=== PATIENT | male | born 1970 | race Caucasian/White ===

== ENCOUNTER 2016-07-06 18:06 | Emergency (ER) | payer OTHER ==
[2016-07-06 18:26] VITALS: BP 157/77; PULSE 93; RESP 15; TEMP 98.7
--- NOTE | 2016-07-06 18:57 | ED ---
Neck Injury/Pain HPI - General Chief Complaint: Neck Pain/Injury Stated Complaint: nodule on neck Time Seen by Provider: 07/06/16 18:35 Source: RN notes reviewed Mode of arrival: ambulatory Limitations: no limitations - History of Present Illness Initial Comments: This is a 46-year-old male with chief complaint of acute onset of right-sided neck swelling for proximally 2 days. Patient reports he woke up yesterday insert as well as the humerus. Patient reports that he had a go to work today and decided to come to the emergency department to be evaluated after work. Patient states that he has no fever or chills. He denies any sore throat or cough. Patient states that he does have a history of poor dentition. - Related Data Home Medications Medication Instructions Recorded Confirmed Lisinopril [Zestril] 2.5 mg PO DAILY 06/02/15 07/06/16 glipiZIDE [Glucotrol] 10 mg PO AC-BID 06/02/15 07/06/16 Previous Rx's Medication Instructions Recorded Amoxic-Pot Clav 875-125Mg 1 tab PO Q12HR #20 tablet 07/06/16 [Augmentin 875-125] Allergies Allergy/AdvReac Type Severity Reaction Status Date / Time No Known Allergies Allergy Verified 07/06/16 18:56 Review of Systems ROS Statement: Those systems with pertinent positive or pertinent negative responses have been documented in the HPI. ROS Other: All systems not noted in ROS Statement are negative. Past Medical History Past Medical History: Diabetes Mellitus, Hypertension History of Any Multi-Drug Resistant Organisms: None Reported Past Surgical History: Ear Surgery Past Psychological History: No Psychological Hx Reported Smoking Status: Never smoker Past Alcohol Use History: None Reported Past Drug Use History: None Reported General Exam - General Exam Comments Initial Comments: Pleasant 46-year-old male. No acute distress. Limitations: no limitations General appearance: alert, in no apparent distress Head exam: Present: atraumatic, normocephalic, normal inspection Eye exam: Present: normal appearance, PERRL, EOMI. Absent: scleral icterus, conjunctival injection, periorbital swelling ENT exam: Present: normal exam, normal oropharynx, mucous membranes moist, TM's normal bilaterally, normal external ear exam, other (Patient has significant swelling over the right lower jaw. ) Neck exam: Present: normal inspection. Absent: tenderness, meningismus, lymphadenopathy Respiratory exam: Present: normal lung sounds bilaterally. Absent: respiratory distress, wheezes, rales, rhonchi, stridor Cardiovascular Exam: Present: regular rate, normal rhythm, normal heart sounds. Absent: systolic murmur, diastolic murmur, rubs, gallop, clicks GI/Abdominal exam: Present: soft, normal bowel sounds. Absent: distended, tenderness, guarding, rebound, rigid Extremities exam: Present: normal inspection, full ROM, normal capillary refill. Absent: tenderness, pedal edema, joint swelling, calf tenderness Back exam: Present: normal inspection, full ROM Neurological exam: Present: alert, oriented X3, CN II-XII intact Psychiatric exam: Present: normal affect, normal mood Skin exam: Present: warm, dry, intact, normal color. Absent: rash Course Vital Signs 07/06/16 18:22 Temperature 98.7 F Pulse Rate 93 Respiratory 15 Rate Blood Pressure 157/77 O2 Sat by Pulse 96 Oximetry Medical Decision Making - Medical Decision Making Patient is a 46-year-old male she complains of acute right lower jaw swelling. Patient has no fever or chills, no evidence of dental caries or dental abscess. Patient reports that it occurred suddenly 2 days ago. I discussed with Dr. Zeng needed a examination with the patient. He thinks that is a possible salivary stone clogging the duct. We'll put the patient on Augmentin and advised to have somewhat limited drops to increase the saliva and possibly remove the stone from the area. We'll also refer the patient to ENT specialist if symptoms continue to persist after 2 or 3 days. Patient understands treatment plan will comply. Return parameters were discussed. Disposition Clinical Impression: Salivary gland swelling Disposition: HOME SELF-CARE Condition: Good Instructions: Sialoadenitis (ED) Additional Instructions: Patient advised to complete entire antibiotic prescription. Follow-up with primary care provider. Patient also advised to use any soap on lemon drops to increase saliva production, as this will possibly have the stone come out. Patient advised to follow-up with ENT specialist within the next 2 or 3 days if symptoms continue to persist. Prescriptions: Amoxic-Pot Clav 875-125Mg [Augmentin 875-125] 1 tab PO Q12HR #20 tablet Referrals: Tia Staton MD [Primary Care Provider] - 1-2 days Edgar Wiggins DO [Doctor of Osteopathic Medicine] - 1-2 days Time of Disposition: 18:53
== END 2016-07-06 19:01 | disposition home or self-care (01) ==
LOC: EC 18:06
DX: K11.20 Sialoadenitis, unspecified (principal); E11.9 Type 2 diabetes mellitus without complications; I10 Essential (primary) hypertension; Z79.84 Long term (current) use of oral hypoglycemic drugs; Z79.899 Other long term (current) drug therapy
CPT/HCPCS: 99283

== ENCOUNTER → 2016-07-13 | Outpatient (CLI) | payer OTHER ==
--- NOTE | 2016-07-13 14:26 | US ---
EXAMINATION TYPE: US venous doppler duplex LE LT DATE OF EXAM: 07/13/2016 1:12 PM COMPARISON: NONE CLINICAL HISTORY: I83.92 Asymptomatic Varicose Veins LLE, PVD I73.9. Pain left leg with varicose vein s SIDE PERFORMED: Left TECHNOLOGIST IMPRESSION: wnl Left Leg: Negative for DVT Grayscale, color Doppler, spectral Doppler imaging performed of the deep veins of the left lower extr emity. Left common femoral, superficial femoral, popliteal veins all compress normally and show olegario l venous waveforms and color flow on Doppler. IMPRESSION: No evident deep venous thrombosis within the deep veins of the left lower extremity is v isualized.
--- NOTE | 2016-07-20 12:51 | P.ARTDOP ---
Arterial Doppler LOWER EXTREMITY ARTERIAL DOPPLER: DATE OF SERVICE: 07/13/2016 Reason for study: Left leg pain. Doppler waveforms: Multiphasic bilaterally throughout. Pulse volume recording: Normal configuration. Pressure gradients: Non-. Ankle-brachial indices: Greater than 1 bilaterally. Toe pressures: 127 on the right, 129 on the left Impression: Normal study.
== END ==
LOC: RADUSWWP 12:50
PROVIDERS: ATTEND Family Medicine
DX: I83.92 Asymptomatic varicose veins of left lower extremity (principal)
CPT/HCPCS: 93923

== ENCOUNTER 2017-09-20 11:57 | Emergency (ER) | payer OTHER ==
[2017-09-20] MEDS ORDERED: SODIUM CHLORIDE 0.9% 1,000 ML IV STA (12:39)
[2017-09-20 13:18] LABS: Basophils % (A) 0 %; Eosinophils # (A) 0.1 k/uL (0-0.7); Eosinophils % (A) 1 %; HGB 13.4 gm/dL (13.0-17.5); Lymphocytes % (A) 14 %; MCH 29.8 pg (25.0-35.0); MCHC 33.6 g/dL (31.0-37.0); MCV 88.5 fL (80.0-100.0); Mean Platelet Volume 8.9; Monocytes # (A) 0.3 k/uL (0-1.0); Monocytes % (A) 5 %; Neutrophils # (A) 5.5 k/uL (1.3-7.7); Neutrophils % (A) 78 %; Platelet Count 177 k/uL (150-450); RBC 4.52 m/uL (4.30-5.90)
[2017-09-20 13:25] VITALS: RESP 18
[2017-09-20 13:40] LABS: ALT 35 U/L (21-72); AST 21 U/L (17-59); Albumin 3.6 g/dL (3.5-5.0); Alkaline Phosphatase 55 U/L (38-126); Anion Gap 12 mmol/L; Blood Urea Nitrogen 20 mg/dL (9-20); Calcium 7.9 mg/dL (8.4-10.2); Carbon Dioxide 24 mmol/L (22-30); Chloride 104 mmol/L (98-107); Glucose 204 mg/dL (74-99); Potassium 3.8 mmol/L (3.5-5.1); Sodium 140 mmol/L (137-145); Total Bilirubin 0.7 mg/dL (0.2-1.3); Total Protein 6.2 g/dL (6.3-8.2)
--- NOTE | 2017-09-20 13:49 | ED ---
General Adult HPI - General Chief complaint: Dizziness Stated complaint: dizziness Time Seen by Provider: 09/20/17 12:35 Source: patient, EMS, RN notes reviewed Mode of arrival: EMS Limitations: no limitations - History of Present Illness Initial comments: 47-year-old male presents emergency Department chief complaint of dizziness. Patient states that he felt the room spinning and fell using a pass out. Patient states that he showed up to work after riding the bus and felt like this. Patient coworker did give the patient something being drinking when she didn't improve his symptoms. Patient is diabetic. Patient denies any chest pain or shortness breath at this time. Patient states he feels almost 100% better since being emergency department. Patient denies any fever, chills, URI symptoms. Patient denies any other complaints this time. - Related Data Home Medications Medication Instructions Recorded Confirmed Lisinopril [Zestril] 2.5 mg PO DAILY 06/02/15 09/20/17 glipiZIDE [Glucotrol] 10 mg PO AC-BID 06/02/15 09/20/17 Allergies Allergy/AdvReac Type Severity Reaction Status Date / Time No Known Allergies Allergy Verified 09/20/17 12:22 Review of Systems ROS Statement: Those systems with pertinent positive or pertinent negative responses have been documented in the HPI. ROS Other: All systems not noted in ROS Statement are negative. Past Medical History Past Medical History: Diabetes Mellitus, Hypertension History of Any Multi-Drug Resistant Organisms: None Reported Past Surgical History: Ear Surgery Past Psychological History: No Psychological Hx Reported Smoking Status: Never smoker Past Alcohol Use History: None Reported Past Drug Use History: None Reported General Exam Limitations: no limitations General appearance: alert, in no apparent distress Head exam: Present: atraumatic, normocephalic, normal inspection Eye exam: Present: normal appearance, PERRL, EOMI. Absent: scleral icterus, conjunctival injection, periorbital swelling ENT exam: Present: normal exam, normal oropharynx, mucous membranes moist Neck exam: Present: normal inspection, full ROM. Absent: tenderness, meningismus, lymphadenopathy Respiratory exam: Present: normal lung sounds bilaterally. Absent: respiratory distress, wheezes, rales, rhonchi, stridor Cardiovascular Exam: Present: regular rate, normal rhythm, normal heart sounds. Absent: systolic murmur, diastolic murmur, rubs, gallop, clicks GI/Abdominal exam: Present: soft, normal bowel sounds. Absent: distended, tenderness, guarding, rebound, rigid Neurological exam: Present: alert, oriented X3, CN II-XII intact, reflexes normal. Absent: motor sensory deficit Course Vital Signs 09/20/17 09/20/17 12:16 13:24 Temperature 98.2 F Pulse Rate 78 76 Respiratory 16 18 Rate Blood Pressure 167/77 163/88 O2 Sat by Pulse 95 98 Oximetry EKG Findings - EKG Comments: EKG Findings:: EKG performed at 12:57 normal sinus rhythm with a rate of 75. 200 QRS 100 QT/QTC 390/442 Medical Decision Making - Medical Decision Making 47-year-old male presented to the ER for the dizziness which improved after eating. this most likely related to hypoglycemia. patient's blood sugar has been trending up. patient has no symptoms in emergency from. patient normally ekg and lab work. patient advised to recheck blood sugar he frequent meals and follow-up with pcp. - Lab Data Result diagrams: 09/20/17 12:26 09/20/17 12:26 Lab Results 09/20/17 09/20/17 09/20/17 Range/Units 12:26 12:26 12:26 WBC 7.0 (3.8-10.6) k/uL RBC 4.52 (4.30-5.90) m/uL Hgb 13.4 (13.0-17.5) gm/dL Hct 40.0 (39.0-53.0) % MCV 88.5 (80.0-100.0) fL MCH 29.8 (25.0-35.0) pg MCHC 33.6 (31.0-37.0) g/dL RDW 13.0 (11.5-15.5) % Plt Count 177 (150-450) k/uL Neutrophils % 78 % Lymphocytes % 14 % Monocytes % 5 % Eosinophils % 1 % Basophils % 0 % Neutrophils # 5.5 (1.3-7.7) k/uL Lymphocytes # 1.0 (1.0-4.8) k/uL Monocytes # 0.3 (0-1.0) k/uL Eosinophils # 0.1 (0-0.7) k/uL Basophils # 0.0 (0-0.2) k/uL Sodium 140 (137-145) mmol/L Potassium 3.8 (3.5-5.1) mmol/L Chloride 104 (98-107) mmol/L Carbon Dioxide 24 (22-30) mmol/L Anion Gap 12 mmol/L BUN 20 (9-20) mg/dL Creatinine 0.86 (0.66-1.25) mg/dL Est GFR (CKD-EPI)AfAm >90 (>60 ml/min/1.73 sqM) Est GFR (CKD-EPI)NonAf >90 (>60 ml/min/1.73 sqM) Glucose 204 H (74-99) mg/dL Calcium 7.9 L (8.4-10.2) mg/dL Total Bilirubin 0.7 (0.2-1.3) mg/dL AST 21 (17-59) U/L ALT 35 (21-72) U/L Alkaline Phosphatase 55 (38-126) U/L Troponin I <0.012 (0.000-0.034) ng/mL Total Protein 6.2 L (6.3-8.2) g/dL Albumin 3.6 (3.5-5.0) g/dL Disposition Clinical Impression: Dizziness Disposition: HOME SELF-CARE Condition: Stable Instructions: Dizziness (ED) Additional Instructions: Please return to the Emergency Department if symptoms worsen or any other concerns. Is patient prescribed a controlled substance at d/c from ED?: No Referrals: Tia Staton MD [Primary Care Provider] - 1-2 days Time of Disposition: 14:15
[2017-09-20 14:24] VITALS: BP 160/87; PULSE 77; TEMP 97.4
== END 2017-09-20 14:45 | disposition home or self-care (01) ==
LOC: EC 11:57
DX: R42 Dizziness and giddiness (principal); E11.9 Type 2 diabetes mellitus without complications; I10 Essential (primary) hypertension; Z79.84 Long term (current) use of oral hypoglycemic drugs; Z79.899 Other long term (current) drug therapy
CPT/HCPCS: 36415; 80053; 84484; 85025; 93005; 96360; 99284

== ENCOUNTER → 2017-12-18 | Outpatient (CLI) | payer OTHER ==
--- NOTE | 2017-12-18 18:38 | MR ---
EXAMINATION TYPE: MR lumbar spine wo con DATE OF EXAM: 12/18/2017 COMPARISON: None HISTORY: Low back pain CONTRAST: 0 mL intravenous Gadavist. TECHNIQUE: Multiplanar, multisequence images of the lumbar spine were acquired. FINDINGS: Cord terminates at the L1 level. L5-S1: Mild disc bulge is present with anterior thecal sac contact. No spinal canal stenosis present. Facet hypertrophy is present on the right. This has mild posterior lateral thecal sac contact. Disc desiccation is present. L4-L5: Broad-based disc bulge is present. There is central focal protrusion. Far right and left later al disc bulge is present. There is mild bilateral foraminal narrowing. No AP spinal canal stenosis pr esent. Mild facet hypertrophy is present. Disc desiccation is present. L3-L4: Based disc bulge has anterior thecal sac flattening. Facet hypertrophy is posterior lateral th ecal sac compression. No spinal canal stenosis is present. Neural foramen are patent. L2-L3: Mild disc bulging is anterior thecal sac contact. Mild facet hypertrophy is present. No spinal canal stenosis or neural foraminal stenosis is is L1-L2: No significant disc bulge or disc herniation. No spinal canal stenosis. No foraminal stenosi s. T12-L1: No significant disc bulge or disc herniation. No spinal canal stenosis. No foraminal stenos is. IMPRESSION: 1. Disc bulging L5-S1 and L4-5 with mild anterior thecal sac compression. 2. L4-5 disc has some additional central protrusion with moderate anterior thecal sac compression wit hout stenosis. 3. Diffuse mild facet hypertrophy, greater in the lower lumbar spine with mild posterior lateral thec al sac compression. No stenosis is present
== END | disposition home or self-care (01) ==
LOC: RADMRIMAIN 09:51
PROVIDERS: ATTEND Family Medicine
DX: M51.27 Other intervertebral disc displacement, lumbosacral region (principal); M51.26 Other intervertebral disc displacement, lumbar region; M47.816 Spondylosis without myelopathy or radiculopathy, lumbar region
CPT/HCPCS: 72148

== ENCOUNTER 2018-07-05 13:20 | Emergency (ER) | payer OTHER ==
[2018-07-05] MEDS ORDERED: KETOROLAC 60 MG/2 ML VIAL IM STA (13:45)
[2018-07-05] MEDS ORDERED: LIDOCAINE 5% PATCH TOPICAL STA (13:45)
--- NOTE | 2018-07-05 14:13 | ED ---
General Adult HPI - General Chief complaint: Chest Pain Stated complaint: fall, back pain Time Seen by Provider: 07/05/18 13:40 Source: patient, RN notes reviewed, old records reviewed Mode of arrival: ambulatory Limitations: no limitations - History of Present Illness Initial comments: 40-year-old male patient with past medical history of hypertension diabetes presents to ED after sustaining a fall while getting out of the bathtub today. Patient reports that he slipped, his left ribs hit the bathtub. Patient denies any other injuries. Patient denies any trauma to head or neck. Patient laboratory without difficulty. Patient primary complaint is left seventh rib pain. Patient is having no difficulty breathing. Patient denies all other complaints. Systemic: Pt denies fatigue, myalgia, fever/chills, rash. Pt denies weakness, night sweats, weight loss. Neuro: Pt denies headache, visual disturbances, syncope or pre-syncope. HEENT: Pt denies ocular discharge or irritation, otalgia, rhinorrhea, pharyngitis or notable lymphadenopathy. Cardiopulmonary: Pt denies chest pain, SOB, heart palpitations, dyspnea on exertion. Abdominal/GI: Pt denies abdominal pain, n/v/d. : Pt denies dysuria, burning w/ urination, frequency/urgency. Denies new onset urinary or bowel incontinence. MSK: Pt denies myalgia, loss of strength or function in extremities. Neuro: Pt denies new onset weakness, paresthesias. - Related Data Home Medications Medication Instructions Recorded Confirmed Lisinopril [Zestril] 2.5 mg PO DAILY 06/02/15 09/20/17 glipiZIDE [Glucotrol] 10 mg PO AC-BID 06/02/15 09/20/17 Previous Rx's Medication Instructions Recorded Ibuprofen [Motrin] 600 mg PO Q6HR PRN #40 day 07/05/18 Allergies Allergy/AdvReac Type Severity Reaction Status Date / Time No Known Allergies Allergy Verified 07/05/18 13:49 Review of Systems ROS Statement: Those systems with pertinent positive or pertinent negative responses have been documented in the HPI. ROS Other: All systems not noted in ROS Statement are negative. Past Medical History Past Medical History: Diabetes Mellitus, Hypertension History of Any Multi-Drug Resistant Organisms: None Reported Past Surgical History: Ear Surgery Past Psychological History: No Psychological Hx Reported Smoking Status: Never smoker Past Alcohol Use History: None Reported Past Drug Use History: None Reported General Exam - General Exam Comments Initial Comments: Constitutional: NAD, AOX3, Pt has pleasant affect. HEENT: NC/AT, trachea midline, neck supple, no lymphadenopathy. Posterior pharynx non erythematous, without exudates. External ears appear normal, without discharge. Mucous membranes moist. Eyes PERRLA, EOM intact. There is no scleral icterus. No pallor noted. Cardiopulmonary: RRR, no murmurs, rubs or gallops, no JVD noted. Lungs CTAB in anterior and posterior acuna. No peripheral edema. Abdominal exam: Abdomen soft and non-distended. Abdomen non-tender to palpation in all 4 quadrants. Bowel sounds active in LLQ. No hepatosplenomegaly. No ecchymosis Neuro: CN II-XII grossly intact. No nuchal rigidity. MSK: Left seventh rib mildly tender to palpation, no crepitus, no ecchymoses, no palpable deformity. No posterior calf tenderness bilaterally, homans sign negative bilaterally. Posterior tibialis and radial pulse +2 bilaterally. Sensation intact in upper and lower extremities. Full active ROM in upper and lower extremities, 5/5 stregnth. Limitations: no limitations Course Vital Signs 07/05/18 14:58 Temperature 98.3 F Pulse Rate 82 Respiratory 18 Rate Blood Pressure 133/72 O2 Sat by Pulse 99 Oximetry Medical Decision Making - Medical Decision Making 40-year-old male patient with past medical history of hypertension diabetes presents to ED after sustaining a fall while getting out of the bathtub today. Patient reports that he slipped, his left ribs hit the bathtub. Patient denies any other injuries. Patient denies any trauma to head or neck. Patient laboratory without difficulty. Patient primary complaint is left seventh rib pain. Patient is having no difficulty breathing. Patient denies all other complaints. Patient vital signs stable, afebrile. Physical exam displayed: Left seventh rib mildly tender to palpation, no crepitus, no ecchymoses, no palpable deformity. Plain film of left ribs and PA chest x-ray did not display any acute abnormality. Patient had improvement of Toradol, lidoderm patch. Patient to be discharged, follow-up with primary care provider in 1-2 days. Patient to return to ER if new symptoms develop or condition worsens in any way. Return parameters discussed, patient verbalized understanding. Case discussed with Dr. Gonzalez. Disposition Clinical Impression: Rib pain on left side Disposition: HOME SELF-CARE Condition: Stable Instructions (If sedation given, give patient instructions): Fall Prevention (ED) Additional Instructions: Patient to adhere to previously discussed treatment plan and will take medication(s) as directed. Patient to follow up with PCP in 1-2 days. Patient to return to ED if symptoms do not improve. Return to ER if condition worsens in any way. Including symptoms of difficulty breathing, worsening pain. Prescriptions: Ibuprofen [Motrin] 600 mg PO Q6HR PRN #40 day PRN Reason: Pain Is patient prescribed a controlled substance at d/c from ED?: No Referrals: Tia Staton MD [Primary Care Provider] - 1-2 days
--- NOTE | 2018-07-05 14:41 | XR ---
Chest x-ray with left RIBS HISTORY: Trauma and pain Frontal view of the chest and 4 views of the left ribs are submitted. There is no evident airspace disease or pneumothorax. Heart size is normal. No displaced rib fracture . No pleural effusion. IMPRESSION: No acute abnormality. Bone scan could be performed for increased sensitivity if occult fr acture is suspected.
[2018-07-05 14:59] VITALS: BP 133/72; PULSE 82; RESP 18; TEMP 98.3
== END 2018-07-05 15:20 | disposition home or self-care (01) ==
LOC: EC 13:20
DX: R07.81 Pleurodynia (principal); E11.9 Type 2 diabetes mellitus without complications; I10 Essential (primary) hypertension; Z79.84 Long term (current) use of oral hypoglycemic drugs; Z79.899 Other long term (current) drug therapy; W01.198A Fall on same level from slipping, tripping and stumbling with subsequent striking against other object, initial encounter; Y93.89 Activity, other specified
CPT/HCPCS: 71101; 99284; 96372; J1885

== ENCOUNTER → 2021-11-22 | Outpatient (CLI) | payer OTHER ==
[2021-11-22 14:59] LABS: Basophils # (A) 0.04 X 10*3/uL (0.00-0.10); Basophils % (A) 0.6 %; Eosinophils # (A) 0.21 X 10*3/uL (0.04-0.35); Eosinophils % (A) 3.1 %; HCT 45.8 % (39.6-50.0); HGB 14.6 g/dL (13.0-17.0); Immature Grans, Automated 0.6 %; Lymphocytes % (A) 30.8 %; MCH 28.6 pg (27.0-32.0); MCHC 31.9 g/dL (32.0-37.0); MCV 89.6 fL (80.0-97.0); Mean Platelet Volume 12.7 fL (9.5-12.2); Monocytes # (A) 0.48 X 10*3/uL (0.20-1.00); NRBC Per 100 WBC 0 /100 WBCS (0.0-0.0); Neutrophils # (A) 3.94 X 10*3/uL (1.80-7.70); Neutrophils % (A) 57.9 %; Platelet Count 224 X 10*3/uL (140-440); RBC 5.11 X 10*6/uL (4.40-5.60); WBC 6.81 X 10*3/uL (4.50-10.00)
[2021-11-22 15:06] LABS: ALT 16 U/L (10-49); AST 20 U/L (14-35); African American GFR (CKD) 109.2 (60.0-200.0); Albumin 4.1 g/dL (3.8-4.9); Albumin/Globulin Ratio 1.17 (1.60-3.17); Alkaline Phosphatase 74 U/L (41-126); BUN/Creat Ratio 12.74 Ratio (12.00-20.00); Blood Urea Nitrogen 11.9 mg/dL (9.0-27.0); Calcium 8.3 mg/dL (8.7-10.3); Carbon Dioxide 22.9 mmol/L (20.0-27.5); Chloride 99 mmol/L (96-109); Chol/HDL Ratio 3.79 Ratio; Globulin 3.5 g/dL (1.6-3.3); Glucose 318 mg/dL (70-110); LDL Cholesterol,Calculated 119.1 mg/dL (0.0-131.0); Non-African American GFR(CKD) 94.2 (60.0-200.0); Potassium 4.3 mmol/L (3.5-5.5); Sodium 134 mmol/L (135-145); Total Protein 7.6 g/dL (6.2-8.2); VLDL Calculation 18.58 mg/dL (5.00-40.00)
== END | disposition home or self-care (01) ==
LOC: LABWHC1 09:04
PROVIDERS: ATTEND Family Medicine
DX: I10 Essential (primary) hypertension (principal); E78.5 Hyperlipidemia, unspecified; E11.9 Type 2 diabetes mellitus without complications
CPT/HCPCS: 36415; 80053; 80061; 82043; 82570; 83036; 85025